=== PATIENT | female | born 1950 | race Caucasian/White ===

== ENCOUNTER 2021-01-27 21:38 | Inpatient (IN) | payer MEDICARE ==
[~2021-01-27] VITALS: Ht 162.6 cm; Wt 83.0 kg
--- NOTE | 2021-01-27 21:50 | NUR ---
BIBS WITH C/C OF CHEST PAIN, PATIENT A/OX4, BREATHING EVEN AND UNLABORED; NO SOB NOTED. VERBALIZED MILD PAIN 3/10 AT LOWER BACK. NEEDS ATTENDED. KEPT COMFORTABLE. WILL ATTEND TO MD ORDER.
[2021-01-27] MEDS ORDERED: ASPIRIN 325 MG TABLET PO ONE (22:00)
[2021-01-27 22:36] LABS: BASOPHILS # (AUTO) 0.1 /CMM (0.0-0.2); BASOPHILS % (AUTO) 0.6 % (0.0-2.0); EOSINOPHILS % (AUTO) 2.4 % (0.0-6.0); HEMATOCRIT 39 % (33-45); HEMOGLOBIN 13.1 g/dL (11.5-14.8); LYMPHOCYTES # (AUTO) 3.2 /CMM (0.8-4.8); LYMPHOCYTES % (AUTO) 34.2 % (20.0-44.0); MEAN CORPUSCULAR HGB CONC 33 g/dl (31.0-36.0); MEAN CORPUSCULAR VOLUME 87 fL (82-100); MONOCYTES # (AUTO) 0.7 /CMM (0.1-1.30); MONOCYTES % (AUTO) 7.1 % (2.0-12.0); NEUTROPHILS # (AUTO) 5.2 /CMM (1.8-8.9); NEUTROPHILS % (AUTO) 55.7 % (43.0-81.0); PLATELET COUNT (AUTO) 305 /CMM (150-450); RED BLOOD CELL COUNT(AUTO) 4.51 MIL/uL (4.0-5.2); WHITE BLOOD COUNT (AUTO) 9.4 K/uL (4.3-11.0)
[2021-01-27] MEDS ORDERED: ASPIRIN 325 MG TABLET ONE (22:41)
[2021-01-27 22:45] LABS: CALCIUM, SERUM 8.9 mg/dL (8.5-10.1); CREATININE 0.7 mg/dL (0.6-1.3); POTASSIUM 3.5 mmol/L (3.5-5.1)
--- NOTE | 2021-01-27 22:45 | NUR ---
RADIOLOGY AT BEDSIDE FOR CXR.
--- NOTE | 2021-01-27 22:55 | NUR ---
CRITICAL LAB RECEIVED; TROPONIN 2.075; ENDORSED TO
--- NOTE | 2021-01-27 22:55 | NUR ---
COVID SWAB TEST FACLITATED
[2021-01-27] MEDS ORDERED: ENOXAPARIN SODIUM 80 MG/0.8 ML DISP.SYRIN SQ ONE ×2 (23:00→23:06)
--- NOTE | 2021-01-27 23:02 | NUR ---
DR. HAYES SPEAKING WITH DR. LANDERS
--- NOTE | 2021-01-27 23:08 | NUR ---
DR. HAYES SPEAKING WITH ISABEL PICKETT NP REGARDING ADMISSION
[2021-01-27] MEDS ORDERED: ACETAMINOPHEN 325 MG TABLET PO PRN (23:30)
[2021-01-27] MEDS ORDERED: ONDANSETRON HCL/PF 4 MG/2 ML VIAL IVP PRN (23:30)
[2021-01-27] MEDS ORDERED: NITROGLYCERIN 0.4 MG/TAB BOTTLE SL PRN (23:30)
[2021-01-27] MEDS ORDERED: MORPHINE SULFATE INJ 2 MG/ML DISP.SYRIN IV PRN (23:30)
[2021-01-27] MEDS ORDERED: DOCUSATE SODIUM 100 MG CAPSULE PO PRN (23:30)
[2021-01-27] MEDS ORDERED: MAG HYDROX/AL HYDROX/SIMETH 30 ML UDC PO PRN (23:30)
--- NOTE | 2021-01-28 00:44 | NUR ---
BED ASSIGNMENT 105
--- NOTE | 2021-01-28 00:53 | NUR ---
CALLED [facility]; ADMISSION REPORT GIVEN TO SYLVAIN OSPINA FOR ELOISA.
--- NOTE | 2021-01-28 01:00 | NUR ---
TRANSFEERED TO [facility] TO ROOM#105 VIA GURNEY PER ACLS PROTOCOL. RN RECEIVED PT WITH STABLE V/S FOR ELOISA.
[2021-01-28 01:01] VITALS: BP 119/98
--- NOTE | 2021-01-28 01:01 | NUR ---
RETAIL LINK ANALYSTHEALTH COACH NOTE RECEIVED PATIENT VIA GURNEY. AMBULATED TO BED WITH STEADY GAIT. A/OX4. TOLERATING ROOM AIR. RESPIRATIONS ARE EVEN AND UNLABORED. NO S/S SOB NOTED. NO C/O OF CHEST PAIN AT THIS TIME. EXTERNAL TELE MONITOR READS SINUS RHYTHM HR 87. IN NO APPARENT DISTRESS. IV ACCESS IN RIGHT WRIST #20 PATENT AND SALINE LOCKED. OBTAINED VITAL SIGNS. MASTER DEPUTY SHERIFF COURT SECURITY COMPLETED BELONGING LIST. INITIAL PHYSICAL ASSESSMENT COMPLETED AT THI TIME. SKIN ASSESSMENT COMPLETED, SKIN INTACT. MEDICATIONS TAKEN AND WILLL GIVE TO PHARMACY IN AM. BED IS LOW AND LOCKED, HOB ELEVATED IN SEMI FOWLERS, SIDE RAILS UP CALL LIGHT WITHIN REACH. EXPLAINED USE. WILL CONTINUE TO MONITOR THROUGHOUT SHIFT.
[2021-01-28 04:00] VITALS: BP 101/67
[2021-01-28] MEDS ORDERED: METH-649 PO (06:15)
[2021-01-28] MEDS ORDERED: LISI1TAB32 PO (06:15)
--- NOTE | 2021-01-28 07:21 | NUR ---
EXCAVATOR BACKHOE OPERATOR CLOSING NOTE PATIENT RESTING IN BED. A/OX4. REMAINS TOLERATING ROOM AIR. NO RESP DISTRESS. NO C/O CP THROUGHOUT SHIFT. TELE MONITOR READS SINUS RHYTHM. NO DISTRESS. IV ACCESS MAINTAINED IN RIGHT WRIST #20. BED IS LOW AND LOCKED, HOB ELEVATED IN SEMI FOWLERS, SIDE RAILS UP CALL LIGHT WITHIN REACH.WILL ENDORSE TO ONCOMING SHIFT.
--- NOTE | 2021-01-28 07:30 | NUR ---
RN OPENING NOTE Received patient awake in bed appears calm and relaxed no signs of distress. Patient on RA tolerating well. Patient is AO x4 no co pain or discomfort. SR on tele. Has R Hand #20 saline lock flushes well. Safety measures reinforced call light within reach. Will cont to monitor.
[2021-01-28 07:44] LABS: BASOPHILS % (AUTO) 0.3 % (0.0-2.0); EOSINOPHILS % (AUTO) 5.9 % (0.0-6.0); HEMATOCRIT 38 % (33-45); HEMOGLOBIN 12.7 g/dL (11.5-14.8); LYMPHOCYTES % (AUTO) 38.8 % (20.0-44.0); MEAN CORPUSCULAR HGB CONC 33 g/dl (31.0-36.0); MEAN CORPUSCULAR VOLUME 88 fL (82-100); MONOCYTES # (AUTO) 0.7 /CMM (0.1-1.30); MONOCYTES % (AUTO) 9.3 % (2.0-12.0); NEUTROPHILS # (AUTO) 3.5 /CMM (1.8-8.9); NEUTROPHILS % (AUTO) 45.7 % (43.0-81.0); PLATELET COUNT (AUTO) 271 /CMM (150-450); RED BLOOD CELL COUNT(AUTO) 4.37 MIL/uL (4.0-5.2); WHITE BLOOD COUNT (AUTO) 7.7 K/uL (4.3-11.0)
[2021-01-28 08:00] VITALS: BP 102/68
[2021-01-28 08:13] LABS: ALANINE AMINOTRANSFERASE 22 U/L (12-78); ALBUMIN 3.8 g/dL (3.4-5.0); ALKALINE PHOSPHATASE 88 U/L (46-116); ASPARTATE AMINOTRANSFERASE 19 U/L (15-37); BILIRUBIN,TOTAL 0.5 mg/dL (0.2-1.0); CALCIUM, SERUM 9.2 mg/dL (8.5-10.1); CARBON DIOXIDE 26 mmol/L (21-32); CHLORIDE 103 mmol/L (98-107); CREATININE 0.7 mg/dL (0.6-1.3); GLUCOSE 107 mg/dL (74-106); MAGNESIUM 2.2 mg/dL (1.8-2.4); PHOSPHORUS 4.4 mg/dL (2.5-4.9); POTASSIUM 3.5 mmol/L (3.5-5.1); SODIUM SERUM 139 mmol/L (136-145); TOTAL PROTEIN, SERUM 7.4 g/dL (6.4-8.2); UREA NITROGEN, BLOOD 10 mg/dL (7-18)
[2021-01-28 08:16] LABS: BILIRUBIN,URINE NEGATIVE (NEGATIVE); COLOR,URINE YELLOW (YELLOW); LEUKOCYTE ESTERASE ,URINE NEGATIVE (NEGATIVE); NITRITE, URINE NEGATIVE (NEGATIVE); PH,URINE 7.5 (5.0-8.0); PROTEIN,URINE NEGATIVE (NEGATIVE); UGLUCOSE NEGATIVE (NEGATIVE); UROBILINOGEN,URINE 0.2 EU/dL (0.2)
[2021-01-28 08:22] LABS: CHOLESTEROL 177 mg/dL (<200); HDL CHOLESTEROL 54 mg/dL (40-60); LDL 98 mg/dL (0-99); THYROID STIMULATING HORMONE 2.999 uIU/mL (0.358-3.74); TRIGLYCERIDES 165 mg/dL (30-150)
[2021-01-28] MEDS: ENOXAPARIN SODIUM 80 MG/0.8 ML DISP.SYRIN SQ SCH ×2 (08:57→20:37)
[2021-01-28] MEDS: ASPIRIN 81 MG TAB.CHEW PO SCH (08:57)
--- NOTE | 2021-01-28 09:00 | NUR ---
Troponin 2.066 received from lab. Camryn casiano.
--- NOTE | 2021-01-28 10:00 | NUR ---
Consent signed for CT angio. Patient is requesting [place]. Informed Dr. Cowan. Urine collected and picked up by lab.
[2021-01-28] MEDS: HYDROCODONE/APAP 10/325MG TABLET PO PRN (10:50)
[2021-01-28 12:00] VITALS: BP 112/78
[2021-01-28] MEDS: METOPROLOL TARTRATE 50 MG TABLET PO SCH ×2 (12:18→18:56)
[2021-01-28 16:00] VITALS: BP 114/78
[2021-01-28] MEDS: METHOCARBAMOL (750MG) 750 MG TABLET PO SCH (17:01)
[2021-01-28] MEDS ORDERED: IV NS 0.9% 250 ML IV ONE (17:32)
[2021-01-28] MEDS ORDERED: IOHEXOL-350 100 ML VIAL IV ONE (17:32)
[2021-01-28] MEDS ORDERED: METOPROLOL TARTRATE INJ 5 MG/5 ML AMPUL ONE (18:14)
--- NOTE | 2021-01-28 18:56 | NUR ---
CT angio done. Pt came back in stable condition. Blood pressure 108/69. Metoprolol given as ordered.
--- NOTE | 2021-01-28 19:09 | NUR ---
RN CLOSING NOTE Patient in bed awake appears calm and relaxed. Gave NC 2L for o2 sat of 93% earlier. Per patient it helps with breathing. No co pain or discomfort. All due meds given. Vital signs within normal limits. Safety measures reinforced. Endorsed to scene shifter nurse for michela.
--- NOTE | 2021-01-28 19:30 | NUR ---
RN NOTE RECEIVED PATIENT IN BED, AO X4, IN NO S/SX OF ACUTE DISTRESS AT THIS TIME. PATIENT'S BREATHING IS EVEN AND UNLABORED, SATURATION 98% ON ROOM AIR, WITH STAND BY O2 VIA NC. SR ON THE MONITOR, HR IS 73. NOTED IV SITE AT R HAND 22G, AND SUZETTE MIDLINE, ALL HUBS PATENT AND FLUSHING, NO S/S OF INFECTION OR INFILTRATION. PATIENT IS AMBULATORY WITH STANDBY ASSIST. SAFETY MEASURES HAVE BEEN PROVIDED AND IMPLEMENTED. HEAD OF BED ELEVATED. BED IS LOCKED, IN LOWEST POSITION AND SIDE RAILS UP. CALL LIGHT WITHIN REACH OF THE PATIENT. WILL CONTINUE TO MONITOR AND REASSESS FOR ANY CHANGES.
[2021-01-28 20:00] VITALS: BP 118/76
--- NOTE | 2021-01-28 20:15 | NUR ---
RN NOTE PATIENT C/O OF LBM X 3, REQUESTED FOR MEDICATION FOR LBM. DR PICKETT WAS NOTIFIED, ORDERS RECEIVED FOR LOPERAMIDE 2 MG CAP Q4 PRN. SHELL ASSEMBLER AWARE.
[2021-01-28] MEDS ORDERED: LOPERAMIDE HCL (2 MG CAP) 2 MG CAPSULE PO PRN (20:30)
[2021-01-28] MEDS ORDERED: SIMVASTATIN 10 MG TABLET PO ONE (22:00)
[2021-01-29] VITALS: BP 108/69
[2021-01-29] MEDS: METOPROLOL TARTRATE 50 MG TABLET PO SCH ×6 (00:59→23:32)
--- NOTE | 2021-01-29 03:30 | NUR ---
RN NOTE TELEPHONE CALL FROM RADIOLOGY/DR CORINA DUPREE: STATED PATIENT HAS SEVERE CAD - CHRONIC PER CTA 01/28/21. WILL INFORM CARDIO IN AM. PERSONAL FINANCE INSTRUCTOR MADE AWARE.
[2021-01-29 04:00] VITALS: BP 102/66
[2021-01-29 08:00] VITALS: BP 108/71
[2021-01-29] MEDS: ASPIRIN 81 MG TAB.CHEW PO SCH (08:20)
[2021-01-29] MEDS: HYDROCODONE/APAP 10/325MG TABLET PO PRN ×2 (08:21→17:39)
[2021-01-29] MEDS: METHOCARBAMOL (750MG) 750 MG TABLET PO SCH ×2 (08:22→17:39)
[2021-01-29 08:26] LABS: ALBUMIN 3.9 g/dL (3.4-5.0); BILIRUBIN,TOTAL 0.5 mg/dL (0.2-1.0); CALCIUM, SERUM 9.4 mg/dL (8.5-10.1); CREATININE 0.7 mg/dL (0.6-1.3); MAGNESIUM 2.3 mg/dL (1.8-2.4); PHOSPHORUS 4.3 mg/dL (2.5-4.9); POTASSIUM 4.3 mmol/L (3.5-5.1); TOTAL PROTEIN, SERUM 7.7 g/dL (6.4-8.2)
[2021-01-29] MEDS: ENOXAPARIN SODIUM 80 MG/0.8 ML DISP.SYRIN SQ SCH ×2 (08:28→20:32)
[2021-01-29] MEDS ORDERED: HYDROCHLOROTHIAZIDE 25 MG TABLET PO SCH (09:00)
[2021-01-29] MEDS ORDERED: Medication Not On Formulary EA (Lisinopril/Hydrochlorothiazide (Lisinopril-Hctz 10-12.5 PO SCH (09:00)
[2021-01-29] MEDS ORDERED: LISINOPRIL (10MG) 10 MG TABLET PO SCH (09:00)
[2021-01-29 09:56] LABS: BASOPHILS % (AUTO) 0.4 % (0.0-2.0); EOSINOPHILS % (AUTO) 5.6 % (0.0-6.0); HEMATOCRIT 39 % (33-45); HEMOGLOBIN 12.9 g/dL (11.5-14.8); LYMPHOCYTES # (AUTO) 2.6 /CMM (0.8-4.8); LYMPHOCYTES % (AUTO) 28.8 % (20.0-44.0); MEAN CORPUSCULAR HGB CONC 33 g/dl (31.0-36.0); MEAN CORPUSCULAR VOLUME 88 fL (82-100); MONOCYTES # (AUTO) 0.7 /CMM (0.1-1.30); MONOCYTES % (AUTO) 7.8 % (2.0-12.0); NEUTROPHILS # (AUTO) 5.2 /CMM (1.8-8.9); NEUTROPHILS % (AUTO) 57.4 % (43.0-81.0); PLATELET COUNT (AUTO) 266 /CMM (150-450)
[2021-01-29 12:00] VITALS: BP 91/58
[2021-01-29 16:00] VITALS: BP 94/60
--- NOTE | 2021-01-29 19:20 | NUR ---
RN OPENING NOTE RECEIVED PATIENT IN BED RESTING ALERT ORIENTED X4 VERBALLY RESPONSIVE ON 2L OXYGEN VIA NASAL CANNULA, O2:96% IV SITE IS ON RIGHT HAND AND LEFT UPPER ARM MIDLINE INTACT PATENT,AMBULATORY CONTINENT TO BOWEL/BLADDER, NPO AFTER MIDNIGHT FOR PROCEDURE TOMORROW,CALL LIGHT WITHIN REACH,BED IN LOW POSITION AND LOCKED,SAFETY MEASURE IMPLEMENT,CONTINUE TO MONITOR.
[2021-01-29 20:00] VITALS: BP 104/66
--- NOTE | 2021-01-29 20:00 | NUR ---
RN NOTE CONSENT FOR CATH CATHETERIZATION FOR TOMORROW SIGNED BY PATIENT AND PLACED IN CHART.
--- NOTE | 2021-01-29 23:33 | NUR ---
RN NOTE HELD LOPRESSOR AT MIDNIGHT SBP<105 PARAMETER,CONTINUE TO MONITOR.
[2021-01-30] VITALS (13 sets, daily range): BP systolic 90–136; BP diastolic 65–90
[2021-01-30] MEDS: METOPROLOL TARTRATE 50 MG TABLET PO SCH ×2 (05:25→17:42)
--- NOTE | 2021-01-30 05:25 | NUR ---
RN NOTE HELD LOPRESSOR AT 0600 SBP<105 CONTINUE TO MONITOR
[2021-01-30] MEDS ORDERED: IV NS 0.9% 1,000 ML ONE (05:59)
[2021-01-30] MEDS ORDERED: IODIXANOL 0 ML IV ONE (06:00)
[2021-01-30] MEDS ORDERED: LIDOCAINE HCL/MPF 1% 30 ML VIAL IJ ONE (06:01)
[2021-01-30] MEDS ORDERED: VERAPAMIL HCL IV 5 MG/2 ML VIAL ONE (06:01)
[2021-01-30] MEDS ORDERED: NITROGLYCERIN ICAR 1,000 MCG/10 ML VIAL ICAR ONE (06:01)
--- NOTE | 2021-01-30 06:24 | NUR ---
RN NOTE PATIENT TRANSFERRED TO [facility] STILL RUNNER COMPOUNDER FOR CARDIAC CATHETERIZATION IN STABLE CONDITION.
[2021-01-30 06:32] LABS: BASOPHILS % (AUTO) 0.7 % (0.0-2.0); EOSINOPHILS % (AUTO) 6.9 % (0.0-6.0); HEMATOCRIT 38 % (33-45); HEMOGLOBIN 12.5 g/dL (11.5-14.8); LYMPHOCYTES # (AUTO) 2.6 /CMM (0.8-4.8); LYMPHOCYTES % (AUTO) 38.7 % (20.0-44.0); MEAN CORPUSCULAR HGB CONC 34 g/dl (31.0-36.0); MEAN CORPUSCULAR VOLUME 88 fL (82-100); MONOCYTES # (AUTO) 0.5 /CMM (0.1-1.30); MONOCYTES % (AUTO) 7.1 % (2.0-12.0); NEUTROPHILS # (AUTO) 3.2 /CMM (1.8-8.9); NEUTROPHILS % (AUTO) 46.6 % (43.0-81.0); PLATELET COUNT (AUTO) 259 /CMM (150-450); RED BLOOD CELL COUNT(AUTO) 4.28 MIL/uL (4.0-5.2); WHITE BLOOD COUNT (AUTO) 6.8 K/uL (4.3-11.0)
[2021-01-30] MEDS ORDERED: HEPARIN SODIUM, PORCINE 1,000 UNIT/ML VIAL ONE (06:38)
[2021-01-30] MEDS ORDERED: MIDAZOLAM HCL 2 MG/2ML VIAL ONE (06:49)
[2021-01-30] MEDS ORDERED: FENTANYL PF 100MCG/2ML AMPUL ONE ×2 (06:49→08:04)
--- NOTE | 2021-01-30 07:00 | NUR ---
RN NOTES PT OFF THE FLOOR AT THIS TIME
[2021-01-30 07:11] LABS: CALCIUM, SERUM 8.7 mg/dL (8.5-10.1); CREATININE 0.7 mg/dL (0.6-1.3); POTASSIUM 3.8 mmol/L (3.5-5.1)
[2021-01-30] MEDS ORDERED: IODIXANOL 320MG/ML 50 ML IV ONE (07:30)
[2021-01-30] MEDS ORDERED: BIVALIRUDIN 250 MG/VIAL IV ONE ×2 (07:30→08:16)
[2021-01-30] MEDS ORDERED: IV SET PRIMARY PUMP SET 1 EA INFUS.SET MC ONE (07:30)
[2021-01-30] MEDS ORDERED: IV NS 0.9% 50 ML IV ONE ×2 (07:30→08:16)
[2021-01-30] MEDS ORDERED: TICAGRELOR 90 MG TABLET PO ONE (07:31)
[2021-01-30] MEDS ORDERED: ASPIRIN 325 MG TABLET ONE (07:31)
[2021-01-30] MEDS ORDERED: IODIXANOL 150 ML IV ONE (07:59)
--- NOTE | 2021-01-30 09:15 | NUR ---
VESSEL OPERATOR NOTES RECEIVED PATIENT S/P CTA, PER REPORT, 1 STENT ON RCA, VSS, NO SIGNS OF DISTRESS NOTED, NO SIGNS OF BLEEDING NOTED. ORDERS ON CHART, WILL CARRY OUT ORDERS. WILL CONTINUE TO MONITOR.
[2021-01-30] MEDS ORDERED: IV NS 0.9% 500 ML IV ONE (10:00)
[2021-01-30] MEDS: METHOCARBAMOL (750MG) 750 MG TABLET PO SCH ×2 (10:02→17:42)
[2021-01-30] MEDS: ASPIRIN 81 MG TAB.CHEW PO SCH (10:02)
--- NOTE | 2021-01-30 12:15 | NUR ---
TELE TECH NOTES NO SIGNS OF BLEEDING ON THE SITE, NOTED WITH PULSE ON THE RIGHT LEG. VSS, HOB ELEVATED 30 DEGREES. WILL CONTINUE TO MONITOR.
[2021-01-30] MEDS: HYDROCODONE/APAP 10/325MG TABLET PO PRN ×2 (14:00→22:05)
--- NOTE | 2021-01-30 14:00 | NUR ---
rn notes Administered [place] 10/325 mg po prn for lower back pain 05/02 per patient request , bp 128/75, p-96, r- 24. Will monitoring.
--- NOTE | 2021-01-30 15:03 | NUR ---
GROUNDS MAINTENANCE WORKER NOTES ENDORSE TO SYLVAIN LUGO FOR ELOISA.
--- NOTE | 2021-01-30 15:15 | NUR ---
rn notes Patient stable, a/o x4, putting makeup . patient has no SOB, relaxing in the bed, checked pulse on right foot present, and right groin area intact dressing no bleeding. Skin warm to touch, urinated using bedpan. call light within to reach. will continued monitoring.
[2021-01-30] MEDS: TICAGRELOR 90 MG TABLET PO SCH (17:42)
--- NOTE | 2021-01-30 18:15 | NUR ---
RN NOTES PATIENT STABLE,DUE MEDICATION ADMINISTERED, VSS, CHECKED RIGHT PULSE PRESENT ,PALPABLE, AND NORMAL, NO BLEEDING RIGHT GROIN. TOLERATED DINNER 75% SELF, USING BEDSIDE COMMODE. CALL LIGHT WITHIN TO REACH. ENDORSED ONCOMING NURSE FOLLOW PLAN OF CARE.
--- NOTE | 2021-01-30 19:30 | NUR ---
RN NOTES RECEIVED PT AWAKE ON BED TALKING TO PHONE. AOX4 VERBALLY RESPONSIVE. DENIES PAIN AT THIS TIME. AFEBRILE. SR ON MONITOR. ON ROOM AIR SATURATION 100%. DENIES CHEST PAIN. NO ACTIVE BLEEDIG FOR THE PROCEDURE SITE. AFEBRILE. IV SITE ON SUZETTE ML AND RIGHT HAND ARE INTACT AND PATENT. CALL LIGHT KEPT WITHIN EASY REACH. ENCOURAGED TO USE FOR ASSISTANCE.
[2021-01-30] MEDS ORDERED: ATORVASTATIN 40 MG TABLET PO SCH (22:00)
--- NOTE | 2021-01-30 22:50 | NUR ---
RN NOTES PATIENT IS UPSET THAT SHE CANT TAKE HER ROBAXIN AT THIS TIME , PER PATIENT IT HELPS HER TO SLEEP AT NIGHT. INFORMED IMPORT CUSTOMS CLEARING AGENT NIEVES EXPLAINING ABOUT THE SAFETY WAY TO TAKE THE MEDS ITS 12 HOURS APART WHICH PATIENT TOOK IT LAST AT 1745 TODAY. OFFERED ALTERNATIVE MEDS THAT MIGHT HELP HER TO SLEEP. NEW ORDER RECEIVED.
[2021-01-30] MEDS ORDERED: diphenhydrAMINE HCL 25 MG CAPSULE PO PRN (23:30)
[2021-01-31] VITALS (16 sets, daily range): BP systolic 94–127; BP diastolic 55–84
[2021-01-31 04:26] LABS: BASOPHILS % (AUTO) 0.2 % (0.0-2.0); EOSINOPHILS % (AUTO) 5.7 % (0.0-6.0); HEMATOCRIT 37 % (33-45); HEMOGLOBIN 12.1 g/dL (11.5-14.8); LYMPHOCYTES # (AUTO) 2.9 /CMM (0.8-4.8); LYMPHOCYTES % (AUTO) 32.6 % (20.0-44.0); MEAN CORPUSCULAR HGB CONC 32 g/dl (31.0-36.0); MEAN CORPUSCULAR VOLUME 89 fL (82-100); MONOCYTES # (AUTO) 0.7 /CMM (0.1-1.30); MONOCYTES % (AUTO) 7.3 % (2.0-12.0); NEUTROPHILS # (AUTO) 4.8 /CMM (1.8-8.9); NEUTROPHILS % (AUTO) 54.2 % (43.0-81.0); PLATELET COUNT (AUTO) 259 /CMM (150-450); RED BLOOD CELL COUNT(AUTO) 4.22 MIL/uL (4.0-5.2); WHITE BLOOD COUNT (AUTO) 8.9 K/uL (4.3-11.0)
[2021-01-31 04:35] LABS: CALCIUM, SERUM 9.1 mg/dL (8.5-10.1); CREATININE 0.7 mg/dL (0.6-1.3); POTASSIUM 3.9 mmol/L (3.5-5.1)
--- NOTE | 2021-01-31 06:58 | NUR ---
RN NOTES PATIENT ASLEEP WELL. DENIES PAIN. RT GROIN DRESSING REMAINED CLEAN NO BLEED NOTED. AFEBRILE. VSS. BSC USED WHILE ON BED. NO SIGNFICANT CHANGES . ALL NEEDS ATTENDED. WILL CONTINUE TO MONITOR.
--- NOTE | 2021-01-31 07:30 | NUR ---
RN NOTES RECEIVED PT ON BED SLEEPING, VSS STABLE, SR UP x3, CALL LIGHT WITHIN EASY REACH, BED LOCKED AND IN LOWEST POSITION, CONTINUE TO MONITOR.
[2021-01-31] MEDS: ASPIRIN 81 MG TAB.CHEW PO SCH (08:09)
[2021-01-31] MEDS: TICAGRELOR 90 MG TABLET PO SCH (08:10)
[2021-01-31] MEDS: METOPROLOL TARTRATE 50 MG TABLET PO SCH (08:10)
[2021-01-31] MEDS: METHOCARBAMOL (750MG) 750 MG TABLET PO SCH (08:14)
[2021-01-31] MEDS: HYDROCODONE/APAP 10/325MG TABLET PO PRN (08:18)
[2021-01-31] MEDS ORDERED: LISINOPRIL (10MG) 10 MG TABLET PO SCH (09:00)
[2021-01-31] MEDS ORDERED: ATOR40TA PO (14:13)
[2021-01-31] MEDS ORDERED: METO50TA16 PO (14:13)
[2021-01-31] MEDS ORDERED: Nitroglycerin SL (14:13)
[2021-01-31] MEDS ORDERED: TICA90TA PO (14:13)
[2021-01-31] MEDS ORDERED: LISI10TA29 PO (14:13)
[2021-01-31] MEDS ORDERED: ASPI-1169 PO (14:13)
--- NOTE | 2021-01-31 15:02 | NUR ---
RN NOTES DISCHARGE INSTRUCTION GIVEN TO PT . PT INSTRUCTED HOW IMPORTANT IS TO TAKE HER [place] PER MD ORDER , PT VERBALIZES UNDERSTANDING . IV SITE D/XENIA .
--- NOTE | 2021-01-31 15:15 | NUR ---
RN NOTES PT LEFT THE FLOOR TO MAIN ENTRANCE AMBULATORY PER HER REQUEST IN STABLE CONDITION. PT LEFT THE HOSPITAL ACCOMPANIED BY HER DAUGHTER AND PRIVATE CAR .HER HOME MEDS RETURNED TO HER FROM PHARMACY.
== END 2021-01-31 15:40 | disposition home or self-care (01) | DRG 246 ==
LOC: ER 21:42 → TELE1 01-28 00:48 → ICU 01-30 09:12
PROVIDERS: ADMIT Registered Nurse
PROC: 05HC33Z Insertion of Infusion Device into Left Basilic Vein, Percutaneous Approach (ICD-10-PCS; 2021-01-28)
PROC: 027034Z Dilation of Coronary Artery, One Artery with Drug-eluting Intraluminal Device, Percutaneous Approach (ICD-10-PCS; principal; 2021-01-30)
PROC: 4A023N7 Measurement of Cardiac Sampling and Pressure, Left Heart, Percutaneous Approach (ICD-10-PCS; 2021-01-30)
PROC: B211YZZ Fluoroscopy of Multiple Coronary Arteries using Other Contrast (ICD-10-PCS; 2021-01-30)
DX: I25.10 Atherosclerotic heart disease of native coronary artery without angina pectoris (principal); I21.4 Non-ST elevation (NSTEMI) myocardial infarction; I22.2 Subsequent non-ST elevation (NSTEMI) myocardial infarction; M54.12 Radiculopathy, cervical region; M79.7 Fibromyalgia; I10 Essential (primary) hypertension; G89.4 Chronic pain syndrome; Z90.710 Acquired absence of both cervix and uterus; Z79.82 Long term (current) use of aspirin; I70.0 Atherosclerosis of aorta; Z91.013 Allergy to seafood; Z87.42 Personal history of other diseases of the female genital tract
CPT/HCPCS: 36410; 36415; 71045-TC; 75574; 80048-TC; 80053-TC; 80061-TC; 83735-TC; 84100-TC; 84443-TC; 84484-TC; 85025-TC; 85610-TC; 87081-TC; 92980; 93307-TC; C1725; C1769; C1887; C1894; C9803; G0378; G0500; J1644; J1650; J2250; J3010; J3490; J7040; J7050; Q0163; Q9967